=== PATIENT | male | born 1960 | race American Indian/Alaskan Native ===

== ENCOUNTER 2022-06-30 02:19 | Emergency (ER) | payer MEDICAID ==
[2022-06-30] MEDS ORDERED: ACETAMINOPHEN 500 MG TAB PO ONE (08:39)
--- NOTE | 2022-06-30 08:40 | Emergency Department Report ---
<SULEIMAN ANTHONY A - Last Filed: 06/30/22 12:24> ED Fall HPI - General Chief Complaint: Fall Stated Complaint: BODY PAIN Time Seen by Provider: 06/30/22 08:33 Source: patient, EMS Mode of arrival: Ambulatory - History of Present Illness Initial Comments: 61 YO COMES TO ER CO SORENESS SP GLF WHILE DRINKING LAST NIGHT LAST DRINK MN INTOXICATED ON EXAM BALDWIN EMR REVIEWED BASELINE TREMOR LIVED W SISTER THEN SHE KICKED HIM OUT HE STATES HE STEPPED OFF CURB AND FELL NO LOC HE IS AMBULATORY WITH NO LAC/ABRASIONS ON EXAM - Related Data Previous Rx's Medication Instructions Recorded Last Taken Type Thiamine [Vitamin B-1] 100 mg PO QDAY #30 tablet 01/18/22 Unknown Rx Allergies Allergy/AdvReac Type Severity Reaction Status Date / Time No Known Allergies Allergy Verified 01/16/22 03:12 ED Review of Systems Comment: All other systems reviewed and negative ED Past Medical Hx - Past Medical History Previous Medical History?: Yes - Surgical History Past Surgical History?: Yes Additional Surgical History: Pt denies - Family History Family history: no significant - Social History Smoking Status: Current Every Day Smoker Substance Use Type: Alcohol - Medications Home Medications: Home Medications Medication Instructions Recorded Confirmed Last Taken Type Thiamine [Vitamin B-1] 100 mg PO QDAY #30 tablet 01/18/22 Unknown Rx ED Physical Exam - General Limitations: No Limitations General appearance: alert, in no apparent distress - Head Head exam: Present: atraumatic, normocephalic - Eye Eye exam: Present: other (CATARACT R EYE ) - ENT ENT exam: Present: mucous membranes dry - Neck Neck exam: Present: normal inspection - Respiratory Respiratory exam: Present: normal lung sounds bilaterally. Absent: respiratory distress - Cardiovascular Cardiovascular Exam: Present: regular rate, normal rhythm. Absent: systolic murmur, diastolic murmur, rubs, gallop - GI/Abdominal GI/Abdominal exam: Present: soft, normal bowel sounds - Rectal Rectal exam: Present: deferred - Extremities Exam Extremities exam: Present: normal inspection - Back Exam Back exam: Present: normal inspection - Neurological Exam Neurological exam: Present: alert, abnormal gait (BASELINE) - Skin Skin exam: Present: warm, dry, intact, normal color. Absent: rash ED Medical Decision Making - Medical Decision Making Vital Signs (72 hours) 06/30/22 03:11 Temperature 98.7 F Pulse Rate 107 H Respiratory 16 Rate Blood Pressure 131/97 [Right] O2 Sat by Pulse 98 Oximetry PT MONITORED IN ER UNTIL HE SOBERED UP DENIED PAIN AT THAT TIME AMBULATORY HE HAS GOTTEN 1L BANANA BAG HE IS TAKING PO BALDWIN ON FOLLOW UP EXAM HR DOWN TO 90 ON FOLLOW UP EXAM STAFF TO CALL SISTER FOR DC DC HOME WITH PCP FOLLOW UP - Differential Diagnosis INTOXICATION ED Disposition Clinical Impression: Intoxication, Homelessness, Fall Disposition: 01 HOME / SELF CARE / HOMELESS Is pt being admited?: No Does the pt Need Aspirin: No Condition: Stable Additional Instructions: AVOID ALCOHOL MOTRIN OR TYLENOL FOR PAIN FOLLOW UP WITH PCP REFERRAL BELOW Referrals: EDMAR MCCOLLUM MD [Primary Care Provider] - 3-5 Days Time of Disposition: 11:10 <RED BRYANT - Last Filed: 07/02/22 00:40> ED Review of Systems ROS: Stated complaint: BODY PAIN Other details as noted in HPI ED Course Vital Signs 06/30/22 07/01/22 03:11 07:03 Temperature 98.7 F Pulse Rate 107 H 86 Respiratory 16 14 Rate Blood Pressure 131/97 143/94 [Right] O2 Sat by Pulse 98 98 Oximetry ED Medical Decision Making - Medical Decision Making This patient was seen independently by the midlevel provider. I was available for consult however I was not involved in the decision making or the disposition of this patient. Red Bryant Critical care attestation.: If time is entered above; I have spent that time in minutes in the direct care of this critically ill patient, excluding procedure time.
[2022-06-30] MEDS ORDERED: THIAMINE 100 MG, FOLIC ACID 1 MG, MULTIPLE VITAMIN INJ, ADULT 10 ML in SODIUM CHLORIDE ... IV ONE (10:00)
[2022-07-01 07:04] VITALS: BP 143/94
== END 2022-07-01 07:04 | disposition home or self-care (01) ==
LOC: ED 02:19
DX: F10.129 Alcohol abuse with intoxication, unspecified (principal); Z59.00 Homelessness unspecified; W19.XXXA Unspecified fall, initial encounter; Y93.89 Activity, other specified; Y92.89 Other specified places as the place of occurrence of the external cause; Y99.8 Other external cause status; Y90.9 Presence of alcohol in blood, level not specified
CPT/HCPCS: 96365; 96366; 99283; J3411; J3490; J7030